=== PATIENT | male | born 1965 | race Caucasian/White ===

== ENCOUNTER 2019-11-15 07:49 | Outpatient (CLI) | payer MEDICARE, MEDICAID ==
[2019-11-15] VITALS (9 sets, daily range): BP systolic 153–162; BP diastolic 87–99
[~2019-11-15] VITALS: Ht 188 cm; Wt 116.4 kg
[2019-11-15] MEDS ORDERED: regadenoson 0.4mg/5ml syringe IV PRN (09:00)
[2019-11-15] MEDS ORDERED: aminophylline 250mg/10ml inj. IV PRN (09:00)
[2019-11-15] MEDS ORDERED: nitroGLYCERIN 0.4mg SUBLingual tab SL PRN (09:00)
[2019-11-15] MEDS ORDERED: normal saline 500ml IV soln 500 ML IV ONE (09:00)
== END 2019-11-15 23:59 | disposition home or self-care (01) ==
LOC: RAD 07:49
PROVIDERS: ATTEND Internal Medicine Cardiovascular Disease
DX: Z01.810 Encounter for preprocedural cardiovascular examination (principal)
CPT/HCPCS: 76937; 78452; 93017; A9500; J0280; J2785; J7040

== ENCOUNTER 2019-11-28 07:41 | Day surgery (SDC) | payer MEDICARE, MEDICAID ==
[2019-11-23 15:59] LABS: BASOPHILS # (AUTO) 0.1 X10'3 (0-0.2); BASOPHILS % (AUTO) 0.9 % (0-1); EOSINOPHILS # (AUTO) 0.6 X10'3 (0-0.9); EOSINOPHILS % (AUTO) 6.5 % (0-6); HEMATOCRIT 43.6 % (42.0-52.0); HEMOGLOBIN 14.6 g/dl (14.0-17.9); LYMPHOCYTES # (AUTO) 3.9 X10'3 (1.1-4.8); LYMPHOCYTES % (AUTO) 42.1 % (21-51); MEAN CORPUSCULAR HGB CONC 33.4 g/dL (33.0-36.5); MEAN CORPUSCULAR VOLUME 92.7 FL (78-98); MEAN PLATELET VOLUME 8.1 FL (7.4-10.4); MONOCYTES # (AUTO) 0.7 X10'3 (0-0.9); MONOCYTES % (AUTO) 8.1 % (2-12); NEUTROPHILS # (AUTO) 3.9 X10'3 (1.8-7.7); NEUTROPHILS % (AUTO) 42.4 % (42-75); PLATELET COUNT 186 X10'3 (140-440); RED BLOOD COUNT 4.71 X10'6 (4.70-6.10); RED CELL DISTRIBUTION WIDTH 13.2 % (11.5-14.5); WHITE BLOOD COUNT 9.2 X10'3 (4.5-11.0)
[2019-11-23 16:09] LABS: PARTIAL THROMBOPLASTIN TIME 27 SECONDS (22-32)
[2019-11-23 16:16] LABS: ALANINE AMINOTRANSFERASE 84 U/L (12-78); ALBUMIN 3.7 G/DL (3.4-5.0); ALBUMIN/GLOBULIN RATIO 0.9 (1.1-1.5); ALKALINE PHOSPHATASE 70 IU/L (46-116); ANION GAP 6 (8-16); ASPARTATE AMINO TRANSFERASE 42 U/L (10-37); BILIRUBIN,TOTAL 0.4 MG/DL (0.1-1.0); BLOOD UREA NITROGEN 13 MG/DL (7-18); BUN/CREATININE RATIO 15.9 (5.4-32.0); CALCIUM 8.7 MG/DL (8.5-10.1); CHLORIDE 103 MMOL/L (99-107); CREATININE 0.82 MG/DL (0.60-1.10); GLUCOSE 82 MG/DL (70-104); SODIUM 138 MMOL/L (135-145); TOTAL CARBON DIOXIDE 29.5 MMOL/L (24-32); TOTAL PROTEIN 7.6 G/DL (6.4-8.2); eGFR > 90 ML/MIN
[~2019-11-28] VITALS: Ht 188 cm; Wt 113.9 kg
[2019-11-28] VITALS (15 sets, daily range): BP systolic 125–155; BP diastolic 68–99
[2019-11-28] MEDS ORDERED: nitroGLYCERIN 0.4mg SUBLingual tab SL PRN ×2 (08:05→10:45)
[2019-11-28] MEDS ORDERED: normal saline 1,000 ML IV SCH (08:05)
[2019-11-28] MEDS ORDERED: LORazepam 0.5 MG tablet PO PRN (08:05)
[2019-11-28] MEDS ORDERED: diphenhydrAMINE 25mg capsule PO PRN (08:05)
[2019-11-28] MEDS ORDERED: LISI10TA4 PO (08:12)
[2019-11-28] MEDS ORDERED: CARV-49 PO (08:12)
[2019-11-28] MEDS ORDERED: ALBU8HFA PO (08:12)
[2019-11-28] MEDS ORDERED: NITR0.4T48 SL (08:12)
[2019-11-28] MEDS ORDERED: METH750T3 PO (08:12)
[2019-11-28] MEDS ORDERED: HYDR-4353 PO (08:12)
[2019-11-28] MEDS ORDERED: midazolam 2 mg/2 ml injection ONE ×4 (08:56→09:44)
[2019-11-28] MEDS ORDERED: LIDOcaine 1% (10mg/ml)w/preservative injection 20ml MDV ONE (08:56)
[2019-11-28] MEDS ORDERED: fentaNYL/PF 50MCG/1 ML 2ML syringe ONE (08:56)
[2019-11-28] MEDS ORDERED: iohexol 350MG/ML 100ml bottle IV ONE (08:56)
[2019-11-28] MEDS ORDERED: iohexol 350 MG/ML 50ML vial IV ONE (08:56)
[2019-11-28] MEDS ORDERED: proCHLORperazine 10 MG/2 ml inj ONE (09:25)
[2019-11-28] MEDS ORDERED: proCHLORperazine 10 MG/2 ml inj IV PRN (10:45)
[2019-11-28] MEDS ORDERED: HYDROcodone/acetaminophen 5mg/325mg tablet PO PRN (10:45)
[2019-11-28] MEDS ORDERED: acetaminophen 325mg tablet PO PRN (10:45)
[2019-11-28] MEDS ORDERED: ondansetron/PF 4mg/2ml inj IV PRN (10:45)
[2019-11-28] MEDS ORDERED: OXAZEpam 15mg capsule PO PRN ×2 (10:45→10:55)
[2019-11-28] MEDS ORDERED: HYDROcodone/acetaminophen 10/325mg tab PO PRN (10:45)
[2019-11-28] MEDS ORDERED: normal saline 1000ml 1,000 ML IV SCH (10:55)
[2019-11-28] MEDS ORDERED: cyclobenzaprine 10mg tablet PO PRN (10:55)
[2019-11-28] MEDS ORDERED: albuterol 2.5 MG/3 ML nebule NEB PRN (10:55)
[2019-11-28] MEDS ORDERED: HYDROcodone/acetaminophen 10/325mg tab PO SCH (12:00)
[2019-11-28] MEDS ORDERED: HYDROmorphone 1 mg/ml syringe IV ONE (14:10)
[2019-11-28] MEDS ORDERED: carvedilol 6.25mg tablet PO SCH (20:00)
[2019-11-29] MEDS ORDERED: lisinopril 10 MG tablet PO SCH (08:00)
== END 2019-11-28 17:00 | disposition home or self-care (01) ==
LOC: SSTAY O 07:41
PROVIDERS: ATTEND Internal Medicine Cardiovascular Disease
DX: R94.39 Abnormal result of other cardiovascular function study (principal); I25.10 Atherosclerotic heart disease of native coronary artery without angina pectoris; I48.0 Paroxysmal atrial fibrillation; I10 Essential (primary) hypertension; E78.5 Hyperlipidemia, unspecified; J44.9 Chronic obstructive pulmonary disease, unspecified; F17.210 Nicotine dependence, cigarettes, uncomplicated; Z72.89 Other problems related to lifestyle; Z79.01 Long term (current) use of anticoagulants; Z86.19 Personal history of other infectious and parasitic diseases; Z98.890 Other specified postprocedural states; Z90.49 Acquired absence of other specified parts of digestive tract; Z88.8 Allergy status to other drugs, medicaments and biological substances; Z88.5 Allergy status to narcotic agent
CPT/HCPCS: 36415; 71046; 80053; 85025; 85610; 85730; 93005; 93458; C1760; C1769; J0780; J1170; J1644; J2001; J2250; J3010; J7030; Q0163; Q9967; 99152; 99153; A4620; A6258